=== PATIENT | female | born 1985 | race Caucasian/White ===

== ENCOUNTER → 2018-08-16 12:46 | Observation (INO) ==
--- NOTE | 2018-08-16 12:44 | Discharge Summary ---
Date of Encounter: 08/16/18 Time of Encounter: 12:44 - Discharge Diagnosis (1) 37 weeks gestation of Priority: Primary Status: Acute Comments: Admitted to observation for labor evaluation No cervical change during stay (2) NST (non-stress test) reactive Priority: Secondary Status: Acute Comments: FHR 140 bpm, moderate variability, +15x15 accels, no decels. (3) Uterine contractions during Priority: Secondary Status: Acute Comments: Irregular contractions during stay - Discharge Medications Home Medications: Ferrous Sulfate 325 mg PO DAILY 08/16/18 [History] Pnv Cmb#21/Iron/Folic Acid [ Complete Caplet] 1 each PO DAILY 08/16/18 [History] Allergies/Adverse Reactions: Allergy/AdvReac Type Severity Reaction Status Date / Time aspirin [ASA] Allergy Difficulty Verified 08/16/18 10:58 Breathing ibuprofen [From Motrin] Allergy Difficulty Verified 08/16/18 10:58 Breathing Date of admission: 08/16/18 10:29 Primary care physician: PCP NONE Discharging clinician: Marlee Iqbal Anticipated date of discharge: 08/16/18 - Patient Status Disposition: Home, Self-Care Condition: Good Functional capacity at discharge: independent ambulation Overall status at discharge: patient is progressing back to baseline - Discharge Instructions Follow Up With: NONE,PCP [Primary Care Provider] - Additional Instructions: LABOR AND DELIVERY DISCHARGE INSTRUCTIONS Signs and Symptoms to be Reported to your Doctor Immediately: * Sudden gush, continuous or intermittent lead of fluid from vagina (note the time of gush and color of fluid) * Onset of bright red vaginal bleeding with or without pain (if you had a vaginal exam during this visit you may notice some dark red spotting. This is normal.) * Contractions that are 5 minutes apart (from the beginning of one contraction to the beginning of the next) and last 45-60 seonds; contractions that you can no longer walk, talk or laugh through. * A change in the baby's activity. This could be an increase or decrease in activity. * Severe headache which does not go away with tylenol. * Sudden swelling in the face, hands, arms and/or legs. * Upper abdominal pain - sometimes associated with heartburn or nausea and is not relieved by Maalox, Mylanta or Tums. * Kick Counts __ One hour after a meal, lay down on one side in a quiet place. Count the number of time the baby moves during an hour. If less than 6 movements, notify your physician Diet: *Force fluids, 8 to 10 tall glasses of fluid per day - may include popsicles and jello *Limit caffeine - this includes chocolate, coffee, tea, any soft drink containing such as all monique, Jason Yellow and Mountain Dew - Diet and Activity Activity: resume usual activities as tolerated Diet: regular diet Hospital Course [employer]PER[employer] Hospital course: Georgina comes in today with complaints of contractions that started at 0630 today. She reports positive movement, denies bleeding and leakage of fluid. Her cervical exam was FT on arrival with no change in >1 hour. Labor precautions given. Patient has a follow up appointment for routine care on Sunday. Time Attestation: Total time spent providing and/or coordinating discharge services: Time Spent: Less than 30 minutes Exam - Constitutional General appearance IM: A&O X 3, pleasant, no acute distress, answers questions appropriately - Respiratory Respiratory exam: Present: CTAB - Cardiovascular Cardiovascular exam IM: Present: RRR, +S1, +S2 - GI/Abdominal GI/Abdominal exam IM: normal bowel sounds, soft - Rectal Rectal exam: deferred - Extremities Exam Extremities exam IM: Present: full ROM, normal capillary refill, normal inspection - Neurological Exam Neurological exam: alert, normal gait, oriented X3 - VTE Reasons for not Prescribing Prophylaxis: Treatment not Indicated - Low risk for VTE
== END | disposition home or self-care (01) ==
LOC: 1NENULAB
PROVIDERS: ADMIT Registered Nurse; ATTEND Registered Nurse

== ENCOUNTER 2018-08-31 08:00 | Inpatient (IN) ==
[2018-08-31] MEDS ORDERED: Famotidine 20 MG/2 ML VIAL IVP PRN (08:07)
[2018-08-31] MEDS ORDERED: miSOPROStol 25 MCG TABLET PO PRN (08:07)
[2018-08-31] MEDS ORDERED: Metoclopramide 10 MG/2 ML VIAL IVP PRN (08:07)
[2018-08-31] MEDS ORDERED: Ondansetron 4 MG/2 ML VIAL IVP PRN (08:07)
[2018-08-31] MEDS ORDERED: Naloxone 0.4 MG/ML INJ IVP PRN (08:07)
[2018-08-31] MEDS ORDERED: *HR* Nalbuphine 10 MG/ML AMPUL IVP PRN (08:07)
[2018-08-31] MEDS ORDERED: Ringers Solution, Lactated 1,000 ML IVC SCH (08:15)
[2018-08-31 08:44] LABS: Basophils # 0.1 K/mcL (0.0-0.2); Basophils % 0.6 %; Eosinophils # 0.2 K/mcL (0.0-0.6); Eosinophils % 1.8 %; Hematocrit 31.4 % (35.3-44.9); Hemoglobin 10.1 g/dL (11.5-15.4); Immature Granulocytes % 2.6 % (0-4); Lymphocytes # 1.3 K/mcL (0.6-4.6); Lymphocytes % 16.2 %; Mean Corpuscular HGB Conc 32.2 g/dL (31.6-35.5); Mean Corpuscular Hemoglobin 28.9 pg (28.0-33.3); Mean Corpuscular Volume 89.7 fL (83.0-100.0); Mean Platelet Volume 9.4 fL (9.4-12.4); Monocytes # 0.5 K/mcL (0.0-1.3); Monocytes % 5.8 %; Neutrophils # 5.9 K/mcL (1.6-8.9); Platelet Count 211 K/mcL (140-400); Red Cell Distribution Width 16.6 % (11.5-14.5)
[2018-08-31 09:08] LABS: Amphetamine Screen,Urine Negative ng/mL (Cutoff=1000); Barbiturate Screen,Urine Negative ng/mL (Cutoff=200); Benzodiazepines Screen,Urine Negative ng/mL (Cutoff=200); Cannabinoid Screen,Urine Negative ng/mL (Cutoff = 50); Cocaine Screen,Urine Negative ng/mL (Cutoff= 300); Opiate Screen,Urine Negative ng/mL (Cutoff=300); Phencyclidine Screen,Urine Negative ng/mL (Cutoff=25)
--- NOTE | 2018-08-31 09:43 | OB/GYN History & Physical ---
Date of Encounter: 08/31/18 Time of Encounter: 09:42 Assessment and Plan (1) 39 weeks gestation of Current visit: Yes Status: Acute Admit for labor. Downs ballon placed. Will augment with pitocin if needed. GBS negative. Anticipate . History of Present Illness Chief complaint: IOL HPI: Ms. Shabazz is a 33 year old female presenting at 39w6d for IOL. Upon arrival SVE 2cm with progression to 3cm. Spontaneous contractions are too frequent for cytotec. Pt denies complaints. Good FM. This has been uncomplicated. A positive Rubella non-immune HIV and treponema negative GBS negative Hep B sag negative Past Med Surg Social Fam HX - Past Medical History Medical history: no medical history Psychiatric history: no psych history - Past Surgical History Surgical History: no surgical history - Social History Smoking Status: Never smoker Smokeless Tobacco Status: No Alcohol use: none Drug use: none - Family History Mother Living Status: Still Living Hx Family Cardiac Disorders: No Hx Family Respiratory Disorders: No Hx Family Cancer: No Hx Family GI Disorders: No Hx Family Genitourinary Disorders: No Hx Family Endocrine Disorder: Yes (thyroid surgery) Hx Family Musculoskeletal Disorders: No Hx Family Neuromuscular Disorders: No Hx Family Neurologic Disorders: No Hx Family HEENT Disorders: No Hx Family Autoimmune Disorders: No Hx Family Reproductive Disorders: No Hx Family Psychosocial Disorders: No Hx Family Medical Disorders: No Obstetrical History - Pregnancies : 4 Para: 3 Term: 3 Livin Medications and Allergies Ferrous Sulfate 325 mg PO DAILY 08/16/18 [History] Pnv Cmb#21/Iron/Folic Acid [ Complete Caplet] 1 each PO DAILY 08/16/18 [History] Allergy/AdvReac Type Severity Reaction Status Date / Time aspirin [ASA] Allergy Difficulty Verified 08/16/18 10:58 Breathing ibuprofen [From Motrin] Allergy Difficulty Verified 08/16/18 10:58 Breathing Review of System OB All systems PM: reviewed and no additional remarkable complaints except as stated Exam - Constitutional Constitutional: well developed, well nourished, no acute distress - HEENT HEENT: Mucus Membranes Moist - Lungs Respiratory exam: CTAB - Cardiovascular Cardiovascular exam: RRR - Abdomen Abdomen: Present: gravid, non tender - Extremities Extremities exam: normal inspection - Vulva Vulva: bilateral: normal - Cervix Dilation: 3 Effacement: 80 Station: -1 - Anus/Rectum Anus/Rectum: Present: normal perianal skin Results Result Diagrams: 08/31/18 08:26 Abnormal lab results RBC 3.50 M/mcL (3.82-4.97) L 08/31/18 08:26 Hgb 10.1 g/dL (11.5-15.4) L 08/31/18 08:26 Hct 31.4 % (35.3-44.9) L 08/31/18 08:26 RDW 16.6 % (11.5-14.5) H 08/31/18 08:26 All other labs normal. - VTE Reasons for not Prescribing Prophylaxis: Treatment not Indicated - Low risk for VTE
--- NOTE | 2018-08-31 11:08 | OB Labor Progress Note ---
Date of Encounter: 08/31/18 Time of Encounter: 11:05 Labor Progress Note - Subjective Subjective: Pt reports some discomfort with contractions but no significant pain. - Cervix Cervix: 6/80/-1 - Heart Tones Heart Tones: Category I - [place]: 2.5-4 minutes - Interventions Interventions: AROM for moderate amount clear fluid - Plan Plan: Continue to monitor. Will augment with pitocin if needed for adequate contractions. Epidural if requested. Anticipate .
[2018-08-31] MEDS ORDERED: Oxytocin 20 units/ LR 1000 mL 20 UNIT/1,000 ML BAG IVC ONE (13:14)
[2018-08-31] MEDS ORDERED: Oxytocin 20 units/ LR 1000 mL 20 UNIT/1,000 ML BAG IVC SCH ×2 (13:15→19:26)
[2018-08-31] MEDS ORDERED: *HR* FentaNYL (PF) 100 MCG/2 ML VIAL ONE (14:27)
[2018-08-31] MEDS ORDERED: Lidocaine -MPF 1% 5 ML AMPUL ONE (14:27)
[2018-08-31] MEDS ORDERED: *HR* Ropivacaine/PF 0.2% 20 ML VIAL ONE (14:28)
[2018-08-31] MEDS ORDERED: Epidural Premix (fent/bupiv) 110 ML EP ONE (14:50)
--- NOTE | 2018-08-31 14:58 | Anesthesia Evaluation PreOp ---
Date of Encounter: 08/31/18 Time of Encounter: 14:56 - Past History Planned Operation: edward Cardiac History: Denies any Significant Hx Pulmonary History: Asthma (childhood) SAP DATA ARCHITECT History: Denies Any Significant HX Other Medical History: Other (scoliosis) Anesthesia History: No Prior Anesthetic Complications, Past Anesthesia : Yes (39 weeks, ) Alcohol Use: none Drug use: none Medications and Allergies Ferrous Sulfate 325 mg PO DAILY 08/16/18 [History] Pnv Cmb#21/Iron/Folic Acid [ Complete Caplet] 1 each PO DAILY 08/16/18 [History] Allergy/AdvReac Type Severity Reaction Status Date / Time aspirin [ASA] Allergy Difficulty Verified 08/16/18 10:58 Breathing ibuprofen [From Motrin] Allergy Difficulty Verified 08/16/18 10:58 Breathing - Meds/Allergy Pre-op Review Medications Reviewed: Yes Allergies Reviewed: Yes Beta Blockers on Current Med List: No Anesthesia Results - Labs 08/31/18 08:26 Anesthesia Exam O2 Sat Height 1.57 m Height 1.57 m Weight 74.6 kg Weight 74.6 kg Height: 62 Weight: 74 - HEENT Pupil (Motor): Pupils equal Mallampati: II Teeth: Normal Oral Opening: Greater than 3 - SAP DATA ARCHITECT LOC: Oriented SAP DATA ARCHITECT Motor: Normal RUE, Normal LUE, Normal RLE, Normal LLE, Normal Face SAP DATA ARCHITECT Sensory: Normal: RUE, LUE, RLE, LLE, Face - Cardiac Rhythm: Regular Murmur: None JVD: No Carotid Bruit: No - Pulmonary Breath Sounds: bilateral Clear Respiratory Effort: Symmetrical Anesthesia Assess/Plan ASA Score: 2 Level of consciousness: Cooperative Anesthetic Plan: Epidural Monitoring Plan: Standard Monitors
--- NOTE | 2018-08-31 15:01 | Anesthesia Procedures ---
Addendum entered and electronically signed by Ernesto Lee CRNA 09/01/18 02:53: Infant Delivery Date: 08/31/18 Delivery Time: 17:09 Original Note: Date of Encounter: 08/31/18 Time of Encounter: 14:20 (procedure end at 1500) Procedures: Anesthesia - Epidural/Spinal Patient ID/Chart reviewed: Yes Patient examined: Yes OB Eval: Gestational age: 39 OB Eval: Contractions: Non-stressed pattern Consent Obtained: Yes Supplemental Oxygen: None/Room Air Site Prep: Aseptic Technique Patient position: upright Local Anesthetic: Lidocaine 1% Amount of Local Anesthetic used: 3 Touhy Needle Gauge: 18 Touhy Needle Depth (cm): 5 Catheter Depth at Skin (cm): 5 Test Dose (1.5% Lido + Epi): Volume given (mls): 3 Test Dose Result: Negative Loading Dose: Fentanyl (mcg): 100 Loading Dose: Other: 6cc 0.2% ropiv Loading Dose Administered: Thru Touhy Needle Infusion Med: 0.125% Bupivacaine w/ 2 mcg/ml Fentanyl Infusion Rate (mls/hr): [address]: Tegaderm Interspace Used: L2-L3 Loss of Resistance (MITCHEL): Yes Blood: No CSF: No Paresthesia: No
[2018-08-31] MEDS ORDERED: EPHEDrine 50 MG/ML VIAL ONE (15:28)
--- NOTE | 2018-08-31 17:29 | OB/GYN Procedure Note ---
Delivery - Delivery Date: 08/31/18 Provider: Susanne Holliday Intrapartum events: none Delivery induction: michaels Delivery augmentation: rupture of membranes, pitocin Delivery monitor: external FHT, external uterine Anesthesia: epidural Quantitated Blood Loss: 350 - Infant (s) A Infant Delivery Date: 08/31/18 Infant Delivery Time: 17:09 Presentation: vertex Position: OA Route of delivery: Gender: Female Viability: Viable Pounds: 9 Ounces: 5 Weight Gram: 4.23 kg at 1 minute: 8 at 5 mins: 9 Shoulder Dystocia: not encountered Specimens collected: cord blood Placenta: spontaneous Cord: 3 umbilical vessels - Repair Episiotomy: none Laceration Description: None - Complications Delivery complications: none - Disposition Mom disposition: stable in LDR disposition: stable in LDR - Comments Comments: CNM called to room when pt complete and 0 station. Pt pushed to over intact perineum for viable female weighing 9lbs 5oz with apgars 8 at one minute and 9 at five minutes. After a 60 second delay the cord was clamped and cut and the placenta delivered spontaneous and intact. No lacerations noted. EBL 350ml. Mother and baby stable in kangaroo care following . Pt desires a tubal ligation tomorrow.
[2018-08-31] MEDS ORDERED: Etonogestrel 68 MG IMPLANT IL ONE (19:26)
[2018-08-31] MEDS ORDERED: Acetaminophen 325 MG TABLET PO PRN (19:26)
[2018-08-31] MEDS ORDERED: Lidocaine -MPF 1% 5 ML AMPUL INFILT ONE (19:26)
[2018-08-31] MEDS ORDERED: Measles/Mumps/Rubella Vacc 0.5 ML VIAL SQ PRN (19:26)
[2018-09-01 08:05] VITALS: BP 106/58
[2018-09-01 08:09] LABS: Basophils % 0.3 %; Eosinophils # 0.1 K/mcL (0.0-0.6); Eosinophils % 0.6 %; Hematocrit 26.8 % (35.3-44.9); Hemoglobin 8.7 g/dL (11.5-15.4); Immature Granulocytes % 1.1 % (0-4); Lymphocytes # 1.2 K/mcL (0.6-4.6); Lymphocytes % 10.4 %; Mean Corpuscular HGB Conc 32.5 g/dL (31.6-35.5); Mean Corpuscular Hemoglobin 29.4 pg (28.0-33.3); Mean Corpuscular Volume 90.5 fL (83.0-100.0); Mean Platelet Volume 9.3 fL (9.4-12.4); Monocytes # 0.5 K/mcL (0.0-1.3); Monocytes % 4.3 %; Neutrophils # 9.4 K/mcL (1.6-8.9); Platelet Count 173 K/mcL (140-400); Red Blood Count 2.96 M/mcL (3.82-4.97); Red Cell Distribution Width 17.1 % (11.5-14.5); Segmented Neutrophils % 83.3 %
--- NOTE | 2018-09-01 08:35 | Discharge Summary ---
Date of Encounter: 09/01/18 Time of Encounter: 08:33 - Discharge Diagnosis (1) Vaginal delivery Priority: Primary Status: Acute Comments: Pt meeting milestones. Anticipate discharge home today after Nexplanon placement. (2) Breast feeding status of mother Priority: Secondary Status: Acute (3) Encounter for initial prescription of Nexplanon Priority: Secondary Status: Acute - Discharge Medications Home Medications: Pnv Cmb#21/Iron/Folic Acid [ Complete Caplet] 1 each PO DAILY 08/16/18 [History] Acetaminophen [Tylenol] 650 mg PO Q6HR PRN tablet 09/01/18 [Rx] Docusate [Colace] 100 mg PO BID capsule 09/01/18 [Rx] Allergies/Adverse Reactions: Allergy/AdvReac Type Severity Reaction Status Date / Time aspirin [ASA] Allergy Difficulty Verified 08/16/18 10:58 Breathing ibuprofen [From Motrin] Allergy Difficulty Verified 08/16/18 10:58 Breathing Data Procedures and tests throughout hospitalization: Laboratory Tests 08/31/18 08/31/18 08/31/18 08:26 08:26 08:26 WBC 8.1 RBC 3.50 L Hgb 10.1 L Hct 31.4 L MCV 89.7 MCH 28.9 MCHC 32.2 RDW 16.6 H Plt Count 211 MPV 9.4 Immature Gran % 2.6 Seg Neutrophils % 73.0 Lymphocytes % 16.2 Monocytes % 5.8 Eosinophils % 1.8 Basophils % 0.6 Neutrophils # 5.9 Lymphocytes # 1.3 Monocytes # 0.5 Eosinophils # 0.2 Basophils # 0.1 Urine Opiates Screen Negative Ur Barbiturates Screen Negative Ur Phencyclidine Scrn Negative Ur Amphetamines Screen Negative U Benzodiazepines Scrn Negative Urine Cocaine Screen Negative U Marijuana (THC) Screen Negative Ur Drug Screen Interp See Below Hep Bs Antigen Nonreactive 09/01/18 07:58 WBC 11.3 H RBC 2.96 L Hgb 8.7 L Hct 26.8 L MCV 90.5 MCH 29.4 MCHC 32.5 RDW 17.1 H Plt Count 173 MPV 9.3 L Immature Gran % 1.1 Seg Neutrophils % 83.3 Lymphocytes % 10.4 Monocytes % 4.3 Eosinophils % 0.6 Basophils % 0.3 Neutrophils # 9.4 H Lymphocytes # 1.2 Monocytes # 0.5 Eosinophils # 0.1 Basophils # 0.0 Urine Opiates Screen Ur Barbiturates Screen Ur Phencyclidine Scrn Ur Amphetamines Screen U Benzodiazepines Scrn Urine Cocaine Screen U Marijuana (THC) Screen Ur Drug Screen Interp Hep Bs Antigen Labs on day of discharge: Labs from last 24 hours 09/01/18 08/31/18 08/31/18 07:58 08:26 08:26 WBC 11.3 H 8.1 RBC 2.96 L 3.50 L Hgb 8.7 L 10.1 L Hct 26.8 L 31.4 L MCV 90.5 89.7 MCH 29.4 28.9 MCHC 32.5 32.2 RDW 17.1 H 16.6 H Plt Count 173 211 MPV 9.3 L 9.4 Immature Gran % 1.1 2.6 Seg Neutrophils % 83.3 73.0 Lymphocytes % 10.4 16.2 Monocytes % 4.3 5.8 Eosinophils % 0.6 1.8 Basophils % 0.3 0.6 Neutrophils # 9.4 H 5.9 Lymphocytes # 1.2 1.3 Monocytes # 0.5 0.5 Eosinophils # 0.1 0.2 Basophils # 0.0 0.1 Urine Opiates Screen Ur Barbiturates Screen Ur Phencyclidine Scrn Ur Amphetamines Screen U Benzodiazepines Scrn Urine Cocaine Screen U Marijuana (THC) Screen Ur Drug Screen Interp Hep Bs Antigen Nonreactive 08/31/18 08:26 WBC RBC Hgb Hct MCV MCH MCHC RDW Plt Count MPV Immature Gran % Seg Neutrophils % Lymphocytes % Monocytes % Eosinophils % Basophils % Neutrophils # Lymphocytes # Monocytes # Eosinophils # Basophils # Urine Opiates Screen Negative Ur Barbiturates Screen Negative Ur Phencyclidine Scrn Negative Ur Amphetamines Screen Negative U Benzodiazepines Scrn Negative Urine Cocaine Screen Negative U Marijuana (THC) Screen Negative Ur Drug Screen Interp See Below Hep Bs Antigen Date of admission: 08/31/18 08:02 Consults: 08/31/18 19:26 Consult to Community Health Nurse [CONS] Routine Comment: Vaginal delivery, consult needed Discharging clinician: Susanne Holliday Anticipated date of discharge: 09/01/18 - Patient Status Disposition: Home, Self-Care Condition: Good Functional capacity at discharge: independent ambulation Overall status at discharge: patient is progressing back to baseline - Discharge Instructions - Diet and Activity Activity: increase activity as tolerated Diet: regular diet Hospital Course Reason for admission: induction of labor Delivery: Episiotomy: none Laceration: none Other procedures: none complications: none Discharge diagnosis: IUP at term delivered Hospital course: - Delivery Date: 08/31/18 Provider: Susanne Holliday Intrapartum events: none Delivery induction: michaels Delivery augmentation: rupture of membranes, pitocin Delivery monitor: external FHT, external uterine Anesthesia: epidural Quantitated Blood Loss: 350 - (s) A Infant Delivery Date: 08/31/18 Infant Delivery Time: 17:09 Presentation: vertex Position: OA Route of delivery: Gender: Female Viability: Viable Pounds: 9 Ounces: 5 Weight Gram: 4.23 kg at 1 minute: 8 at 5 mins: 9 Shoulder Dystocia: not encountered Specimens collected: cord blood Placenta: spontaneous Cord: 3 umbilical vessels - Repair Episiotomy: none Laceration Description: None - Complications Delivery complications: none - Disposition Mom disposition: home PPD1 disposition: home with mother, Time Attestation: Total time spent providing and/or coordinating discharge services: Exam - Constitutional Vitals: Temp Pulse Resp BP Pulse Ox 98.2 F 98 14 106/58 97 09/01/18 08:04 09/01/18 08:04 09/01/18 08:04 09/01/18 08:04 09/01/18 08:04 General appearance IM: A&O X 3 - Respiratory Respiratory exam: Present: CTAB - Cardiovascular Cardiovascular exam IM: Present: RRR - GI/Abdominal GI/Abdominal exam IM: soft - Uterine Tone: Firm Uterus Position: 1 Finger Below Umbilicus - Extremities Exam Extremities exam IM: Present: normal inspection - Neurological Exam Neurological exam: normal gait, oriented X3 - Psychiatric Additional comments: reports good mood.
[2018-09-01] MEDS ORDERED: Lidocaine -MPF 1% 5 ML AMPUL INFILT ONE (08:50)
[2018-09-01] MEDS ORDERED: Etonogestrel 68 MG IMPLANT IL ONE (08:50)
[2018-09-01] MEDS ORDERED: Prenatal Vit/FA 1 EACH TABLET PO SCH (09:00)
--- NOTE | 2018-09-01 09:51 | OB/GYN Procedure Note ---
OB-CLIPPING MARKER: Procedure - Diagnosis Date of procedure: 09/01/18 Pre-op diagnosis: undesired fertility, contraceptive education Post-op diagnosis: other (nexplanon insertion) - Procedure Procedure: Nesplanon insertion Surgeon: Susanne Holliday Was there an melter assistant present: No Anesthesia Type: Local Estimated blood loss (cc): 0 Procedure Complications: none Specimens collected: none Disposition: no change Narrative: Pt desires Nexplanon for contraception. Risks and benefits discussed and consent obtained. Pt placed in supine position. The inner aspect of her left upper arm was cleansed with betadine solution and anesthetized with 1% lidocaine. The Nexplanon was placed intradermally to the full length and then the device was deployed before the needle was removed. The device was then easily palpated under the skin by the patient and myself. A pressure dressing was applied. Pt instructed on site care. Plan for follow-up in office in 4 weeks.
== END 2018-09-01 12:45 | disposition home or self-care (01) | DRG 560 ==
LOC: 1NENULAB 08:02 → 1NENUOBS 19:21
PROVIDERS: ADMIT Registered Nurse; ATTEND Registered Nurse